=== PATIENT | male | born 1965 | race Caucasian/White ===

== ENCOUNTER 2019-12-08 18:43 | Emergency (ER) | payer SELFPAY ==
[~2019-12-08] VITALS: Ht 175.3 cm; Wt 90.9 kg
[2019-12-08 18:48] VITALS: Ht 175.3 cm; Wt 90.9 kg
[2019-12-08] MEDS ORDERED: TRAZODONE HCL300 MG PO (18:48)
[2019-12-08] MEDS ORDERED: LIPITOR20 MG PO (18:49)
[2019-12-08 19:23] LABS: BILIRUBIN NEGATIVE (NEGATIVE); GLUCOSE NEGATIVE (NEGATIVE); KETONE NEGATIVE (NEGATIVE); NITRITE NEGATIVE (NEGATIVE); UROBILINOGEN NORMAL (NORMAL)
[2019-12-08 19:39] LABS: UDS - AMPHET NEGATIVE QUAL (NEGATIVE); UDS - BARB NEGATIVE QUAL (NEGATIVE); UDS - BENZO NEGATIVE QUAL (NEGATIVE); UDS - COCAINE NEGATIVE QUAL (NEGATIVE); UDS - OPIATE NEGATIVE QUAL (NEGATIVE); UDS - PCP NEGATIVE QUAL (NEGATIVE); UDS - THC NEGATIVE QUAL (NEGATIVE)
[2019-12-08 19:44] LABS: ANION GAP 11.5 mmol/L (8-16); BASOPHILS 0.2 % (0-2); CALCIUM 8.8 mg/dL (8.5-10.1); CARBON DIOXIDE 29.5 mmol/L (21.0-32.0); CREATININE - SERUM 1.3 mg/dL (0.6-1.3); EOSINOPHILS 3.5 % (0-7); HEMATOCRIT 42.1 % (42.0-54.0); HEMOGLOBIN 14.6 g/dL (13.5-17.5); IMMATURE GRANULOCYTES 0.2 % (0-5); LYMPHOCYTES 26.2 % (15-50); MCH 30.4 pg (26.0-34.0); MCHC 34.7 g/dL (31.0-37.0); MCV 87.5 fL (80.0-100.0); MEAN PLATELET VOLUME 9.7 fL (7.4-10.4); MONOCYTES 9.8 % (2-11); NEUTROPHILS 60.1 % (40-80); PLATELET COUNT 228 10x3/uL (130-400); RBC 4.81 10x6/uL (4.20-6.10); RDW 12.5 % (11.5-14.5); WBC 5.2 10x3/uL (4.8-10.8)
[2019-12-08 19:50] LABS: ALBUMIN 3.6 g/dL (3.4-5.0); BILIRUBIN - TOTAL 0.37 mg/dL (0.2-1.3); MAGNESIUM - SERUM 1.8 mg/dL (1.8-2.4); PROTEIN - SERUM 6.8 g/dL (6.4-8.2)
--- NOTE | 2019-12-08 19:56 | NUR ---
DR. ADAME NOTIFIED AND SITTER ORDERED. SITTER AT BEDSIDE. NOTIFIED CHARGE NURSE AND ATTENDING IN REGARDS TO ASSESSMENT FINDINGS. RESOURCES GIVEN TO PT AND SAFETY PLAN INITIATED.
[2019-12-09 02:23] VITALS: BP 132/89
== END 2019-12-09 03:09 ==
LOC: D.ER 18:43
PROVIDERS: Family Medicine
DX: R45.851 Suicidal ideations (principal); R45.6 Violent behavior; F41.9 Anxiety disorder, unspecified; F32.9 Major depressive disorder, single episode, unspecified; I10 Essential (primary) hypertension; E78.5 Hyperlipidemia, unspecified